=== PATIENT | male | born 2000 | race Caucasian/White ===

== ENCOUNTER 2020-01-12 20:04 | Emergency (ER) | payer MEDICAID ==
[~2020-01-12] VITALS: Ht 182.9 cm; Wt 88.5 kg
[2020-01-12 20:23] VITALS: Ht 182.9 cm; Wt 88.5 kg
[2020-01-12 21:12] LABS: microscopic required? YES; urine erythrocyte 2+ (NEGATIVE)
[2020-01-12 21:15] LABS: BASOPHIL % 0.4 % (0-2); PLATELET COUNT 380 x10^3mcL (130-400); RED CELL DISTRIBUTION WIDTH 12.4 % (11.5-14.5)
[2020-01-12 21:25] LABS: CALCIUM 9.5 mg/dL (8.5-10.1); CARBON DIOXIDE 31.5 mmol/L (21-32); CHLORIDE SERUM 102 mmol/L (98-107); CREATININE SERUM 1.1 mg/dL (0.7-1.3); GFR1 > 60 mL/min; GLUCOSE SERUM 103 mg/dL (74-106); POTASSIUM SERUM 4.4 mmol/L (3.5-5.1); SODIUM SERUM 141 mmol/L (136-145)
[2020-01-12 21:31] LABS: ALBUMIN 4.1 g/dL (3.4-5.0); ALKALINE PHOSPHATASE 100 U/L (46-116); ALT/SGPT 25 U/L (16-63); AST/SGOT 17 U/L (15-37); BILIRUBIN TOTAL 0.25 mg/dL (0.20-1.00); LIPASE 83 IU/L (73-393); TOTAL PROTEIN, SERUM 7.9 g/dL (6.4-8.2)
[2020-01-12 22:27] VITALS: BP 129/66
== END 2020-01-12 22:27 | disposition home or self-care (01) ==
LOC: ED 20:04
PROVIDERS: Emergency Medicine
DX: N30.91 Cystitis, unspecified with hematuria (principal)
CPT/HCPCS: 36415; 87491; 87591; J0696

== ENCOUNTER 2020-10-12 09:14 | Emergency (ER) | payer SELFPAY ==
[~2020-10-12] VITALS: Ht 182.9 cm; Wt 85.3 kg
[2020-10-12 09:28] VITALS: Ht 182.9 cm; Wt 85.3 kg
[2020-10-12 11:29] VITALS: BP 140/81
== END 2020-10-12 11:52 | disposition home or self-care (01) ==
LOC: ED 09:14
DX: J36 Peritonsillar abscess (principal)
CPT/HCPCS: J0561; J1100; J1885

== ENCOUNTER 2020-10-13 16:08 | Emergency (ER) | payer SELFPAY ==
[~2020-10-13] VITALS: Ht 182.9 cm; Wt 85.3 kg
[2020-10-13 16:22] VITALS: BP 128/81; Ht 182.9 cm; Wt 85.3 kg
== END 2020-10-13 17:04 | disposition home or self-care (01) ==
LOC: ED 16:08
DX: J36 Peritonsillar abscess (principal)